=== PATIENT | male | born 1985 | race African-American/Black ===

== ENCOUNTER 2020-04-02 19:40 | Inpatient (IN) | payer OTHER ==
[~2020-04-02] VITALS: Ht 185.4 cm; Wt 95.3 kg
--- NOTE | 2020-04-02 19:43 | NUR ---
Pt in bathroom giving sample at this time.
[2020-04-02 19:47] VITALS: BP 172/127
[2020-04-02] MEDS ORDERED: PROAIR HFA8.5 GM INH (19:57)
[2020-04-02] MEDS ORDERED: SINGULAIR 10 MG10 M1 PO (19:58)
[2020-04-02 20:19] LABS: HCO3 13.2 mmol/L (22.0-26.0); PCO2 VENOUS 29.3 mmHg (41.0-51.0); PO2 VENOUS 36.1 mmHg (35.0-45.0)
[2020-04-02 20:20] LABS: URINE BILIRUBIN 1+ (Negative); URINE BLOOD 1+ (Negative); URINE CLARITY CLEAR; URINE COLOR YELLOW; URINE GLUCOSE-RANDOM* 3+ (Negative); URINE KETONES 3+ (Negative); URINE LEUKOCYTES-REFLEX NEGATIVE (Negative); URINE NITRITE-REFLEX NEGATIVE (Negative); URINE PROTEIN (DIPSTICK) TRACE (Negative); URINE SPECIFIC GRAVITY 1.025 (1.005-1.035); URINE UROBILINOGEN 0.2 E.U./dl (0.2-1.0)
[2020-04-02 20:21] LABS: HEMATOCRIT 43.3 % (42.0-52.0); MCH 32.2 pg (26.0-34.0); MCHC 34.7 g/dL (28.0-37.0); MCV 92.8 fL (80.0-100.0); PLATELET COUNT 195 thou/uL (150-400); RBC 4.67 mil/uL (4.50-6.00); RDW 14.3 % (10.5-14.5); WBC 5.5 thou/uL (4.0-11.0)
[2020-04-02 20:28] LABS: HYALINE CASTS 0-3 Few /LPF (None Seen); SQUAMOUS 4-10 Moderate /LPF (0-3)
[2020-04-02 20:29] LABS: BACTERIA-REFLEX 1-9 Few /HPF (None Seen); URINE RBC 0-2 Rare /HPF (0-2); URINE WBC-REFLEX 0-5 Rare /HPF (0-5)
[2020-04-02 20:30] LABS: CRYSTALS None Seen /LPF (None Seen)
[2020-04-02 20:33] LABS: CALCIUM 9.1 mg/dL (8.5-10.1); CREATININE 1.4 mg/dL (0.7-1.3); POTASSIUM 3.6 mmol/L (3.5-5.1)
[2020-04-02 20:39] LABS: ALBUMIN 4.3 g/dL (3.4-5.0); TOTAL BILIRUBIN 0.6 mg/dL (0.2-1.0); TOTAL PROTEIN 8.2 g/dL (6.4-8.2)
[2020-04-02 20:49] LABS: ABSOLUTE NEUTROPHILS 3.4 thou/uL (1.4-8.2)
[2020-04-02 20:50] LABS: ANISOCYTOSIS 1+; POLYCHROMASIA OCCASIONAL
[2020-04-02 21:15] LABS: ALBUMIN 4.3 g/dL (3.4-5.0); CALCIUM 9.1 mg/dL (8.5-10.1); CREATININE 1.3 mg/dL (0.7-1.3); MAGNESIUM 2.3 mg/dL (1.8-2.4); PHOSPHORUS 2.9 mg/dL (2.5-4.9); POTASSIUM 3.6 mmol/L (3.5-5.1)
[2020-04-02 22:04] VITALS: BP 138/92
--- NOTE | 2020-04-02 22:08 | NUR ---
FIRST ATTEMPT AT REPORT CALLED. NO ANSWER
--- NOTE | 2020-04-02 22:44 | NUR ---
second attempt at report made. nurse states she will call back in just a min
[2020-04-02 23:02] VITALS: BP 154/85
[2020-04-03] VITALS (11 sets, daily range): BP systolic 126–165; BP diastolic 58–93
[2020-04-03 01:38] LABS: ALBUMIN 3.6 g/dL (3.4-5.0); CALCIUM 8.7 mg/dL (8.5-10.1); CREATININE 1.2 mg/dL (0.7-1.3); PHOSPHORUS 2.1 mg/dL (2.5-4.9)
[2020-04-03 05:34] LABS: ALBUMIN 3.5 g/dL (3.4-5.0); CALCIUM 8.6 mg/dL (8.5-10.1); CREATININE 1.3 mg/dL (0.7-1.3); PHOSPHORUS 3.1 mg/dL (2.5-4.9)
--- NOTE | 2020-04-03 07:45 | EKG ---
[facility] [place] [address] ELECTROCARDIOGRAM REPORT Name: DARLING DA SILVA Room #: 247-P ADM IN M.R.#: [id number] Admission: 04/02/20 Attend Phys: Javier Rain MD Discharge: Date of : 89 Report #: [id number] THIS REPORT FOR: cc: Humza Lee James A. DO Lundgren, Craig H. 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
--- NOTE | 2020-04-03 08:13 | NUR ---
RECIEVED PT FROM ER. PT STATES HE FEELING BETTER AFTER IV FLUIDS. CONT ON DKA PROTOCOL. INSULIN GTT INFUSING TO KEEP BS 150-200. ANION GAP REMAINS AT 17. NO RESP DISTRESS, DENIES CP OR SOB AT THIS TIME. NPO, BUT PT READY TO EAT/DRINK. VOIDING -UO ADEQUATE. CONT PLAN OF CARE. PROGRESSING TOWARD GOALS
--- NOTE | 2020-04-03 09:55 | NUR ---
chart review. pt new to icu today. cm was able to visit with anjel via phone call. he a & o x 3, and able to make his needs know. education on dcp, safe net packet given to bedside nurse to give to cassie hobbs # [phone], [facility] [phone] if needs assistance with medication. anjel report " independent, live alone in apartment, 6 steps with hand rail up to apartment, no stairs inside. no needs in past. last time saw dr yanes was in october said ana luisa muhammad, had insurance and here i am now and no insurance. 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 do not drive, take uber for transportation"/anjel. will cont following as needed for dc needs. if he is unable to affords any new rx might have to vouch for 1 month no refills?
[2020-04-03 09:59] LABS: CREATININE 1.2 mg/dL (0.7-1.3); POTASSIUM 3.4 mmol/L (3.5-5.1)
[2020-04-03 10:00] LABS: MAGNESIUM 2.1 mg/dL (1.8-2.4)
--- NOTE | 2020-04-03 17:51 | NUR ---
PATIENT ON DKA PROTOCOL. Q1HR BLOOD SUGARS. 0900 LABS DRAWN - ANION GAP CLOSED AT 12. 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 ORDERS TO TITRATE OFF INSULIN GTT AND SWITCH TO SS INSULIN WITH LANTUS. IV FLUIDS DISCONTINUED. PATIENT DENIES ANY NAUSEA AND TOLERATING ADVANCED DIET. INTRODUCED PATIENT TO DIABETIC EDUCATION AND MANTAINACE. WILL NEED FURTHER EDUCATION ON INSULIN ADMINISTRATION AND GLUCSOE MONITORING WELL DIABETIC DIET.
[2020-04-04 00:06] LABS: GLYCOHEMOGLOBIN (HGB A1C) 12.7 % (4.8-5.6)
--- NOTE | 2020-04-04 02:35 | NUR ---
ASSUMED PT CARE AT 1915. PT IS UP AD TEENA. A&OX4. VSS. PT BLOOD SUGAR WAS 348 - RECIEVED 9 UNITS OF LISPRO. PT TOOK A SHOWER. PT IS RESTING IN HIS ROOM. WILL CONTINUE TO MONITOR.
[2020-04-04 03:06] LABS: GLYCOHEMOGLOBIN (HGB A1C) 12.8 % (4.8-5.6)
[2020-04-04 04:12] VITALS: BP 131/73
[2020-04-04 05:44] LABS: ABSOLUTE NEUTROPHILS 2.2 thou/uL (1.4-8.2); BASOPHILS 0.1 % (0.0-2.0); HEMATOCRIT 38.8 % (42.0-52.0); HEMOGLOBIN 13.3 gm/dL (14.0-18.0); MCH 31.4 pg (26.0-34.0); MCHC 34.3 g/dL (28.0-37.0); MCV 91.6 fL (80.0-100.0); MONOCYTES 11.6 % (1.0-8.0); PLATELET COUNT 168 thou/uL (150-400); POLYS 41.3 % (36.0-66.0); RBC 4.24 mil/uL (4.50-6.00); RDW 14.1 % (10.5-14.5); WBC 5.4 thou/uL (4.0-11.0)
[2020-04-04 06:12] LABS: ALBUMIN 3.2 g/dL (3.4-5.0); CALCIUM 9.1 mg/dL (8.5-10.1); CREATININE 1.1 mg/dL (0.7-1.3); TOTAL BILIRUBIN 0.5 mg/dL (0.2-1.0); TOTAL PROTEIN 6.2 g/dL (6.4-8.2)
[2020-04-04 06:15] LABS: POTASSIUM 2.6 mmol/L (3.5-5.1)
[2020-04-04 07:26] VITALS: BP 125/67
[2020-04-04 08:17] VITALS: BP 131/73
--- NOTE | 2020-04-04 11:00 | NUR ---
Received awake on bed. Due medications given as prescribed. A+Ox4. On room air. Vitals signs stable. On carb controlled diet- tolerating well; no nausea, no vomiting and no abdominal pain noted. On blood sugar monitoring- taken and recorded accordingly, with sliding scale insulin ordered- given as prescribed; pt newly diagnosed diabetic- health teaching given. Up ad janene, independent with ADLs. Continent of bowel and bladder- able to go to the toilet independently. With SL at L AC- intact and flushing well. Pt with low potassium this morning, PO replacement given as prescribed, for repeat K level at 12pm as ordered. To continue monitoring patient.
--- NOTE | 2020-04-04 13:38 | HC ---
[facility] [place] [address] CONSULTATION Name: DARLING DA SILVA Room #: 449-I ADM IN M.R.#: [id number] Admission: 04/02/20 Attend Phys: Javier Rain MD Discharge: Date of : 89 Report #: [id number] THIS REPORT FOR: cc: Humza Lee James A. DO Al-Mubaslat, Ahmad MD ~ CC: Humza Rain DATE OF SERVICE: 04/03/2020 ENDOCRINE CONSULTATION NOTE CONSULTING PHYSICIAN: Dr. Rain. REASON FOR CONSULTATION: DKA, type 2 diabetes mellitus. HISTORY OF PRESENT ILLNESS: This is a 34-year-old male patient whose medical background is rather unremarkable other than for intermittent issues with mild asthma. The patient presented to the ER yesterday with progressive difficulties pertaining to generalized weakness, fatigue, polyuria, excessive thirst as well as blurry vision for about 2 weeks. On arrival, the patient was evaluated and was found to have evidence of diabetic ketoacidosis and was admitted to the ICU for further care and monitoring. He was treated overnight and earlier this morning with IV insulin and IV fluid resuscitation as per the [facility] protocol and has done progressively better. He feels well this morning. The patient does not have any prior history of diabetes mellitus and does not recall having much of a change in his baseline prior to this 2-week period that is described above. The patient does not have a family history of diabetes mellitus. He does not recall having received new medications or having been acutely ill in the past few weeks. REVIEW OF SYSTEMS: CONSTITUTIONAL: Fatigue, weakness, slight weight loss. No fever or chills. HEENT: Negative for sore throat, sinus pain, ear drainage. PULMONARY: Negative for shortness of breath, cough or hemoptysis. CARDIAC: Negative for chest pain, palpitations, syncope or presyncope. GASTROINTESTINAL: Noted for abdominal discomfort, nausea or vomiting. NEUROLOGY: Negative for loss of consciousness, headaches or seizure activity. DERMATOLOGIC: Negative for skin rash, ulceration or skin discoloration. Otherwise, his review of systems is noncontributory other than those mentioned in HPI. PAST MEDICAL HISTORY: Asthma. [address] [address] CONSULTATION Name: DARLING DA SILVA Room #: 449-I [facility] IN [facility].#: [id number] Admission: 04/02/20 Attend Phys: Javier Rain MD Discharge: Date of : 89 Report #: [id number] OUTPATIENT MEDICATIONS: Singulair 10 mg daily, albuterol as needed. ALLERGIES: No known drug allergies. FAMILY HISTORY: Noncontributory. 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 Denies use of illicit drugs. Drinks alcohol only occasionally. He is an everyday smoker. He is single, does not have children. PHYSICAL EXAMINATION: GENERAL: Pleasant young -Romanian male patient who is not in apparent pain or distress. VITAL SIGNS: Blood pressure is 155/68 mmHg, heart rate is 53 beats per minute, respirations 16 per minute, temperature 36.3 degrees Celsius. CONSTITUTIONAL: The patient is lying supine in bed, appears comfortable, not in apparent distress. HEENT: Anicteric sclerae. Intact extraocular motions. NECK: Supple, without JVD, carotid bruits or lymphadenopathy. I do not appreciate thyromegaly. CHEST: Noted for good air entry bilaterally with scattered rales. No wheezes or crackles. HEART: Regular rate and rhythm without murmurs or gallops. ABDOMEN: Soft, lax. No guarding. Active bowel sounds. EXTREMITIES: Lower extremity exam is negative for ankle edema. No skin breaks or ulcerations. NEUROLOGIC: Awake, alert and oriented to time, place and person. The remainder of his examination is nonfocal. PSYCHIATRIC: Pleasant, interactive. Normal mood and affect. LABORATORY DATA: On presentation, the patient had a blood glucose of 493. This has gotten progressively lower to where it was sustained under 180 mg/dL since midnight, most recently at 98 mg/dL prior to this dictation. Sodium 143, potassium 3.4, chloride 107, CO2 of 24; anion gap 12, it was 24 on presentation; BUN 4, creatinine 1.2, glucose 164, AST 5, total bilirubin 0.6, calcium 9.0, phosphorus 3.1, magnesium 2.1, alkaline phosphatase 117, ALT 25, total protein 8.2, albumin 3.5, EGFR 85. Troponin is negative. White blood count 5.5, hemoglobin 15, hematocrit 43.3, platelets 195. Hemoglobin A1c is pending. GAD65 antibodies are pending. ASSESSMENT AND PLAN: 1. Diabetic ketoacidosis. The patient presented in a manner that is consistent with diabetic ketoacidosis. He has been managed appropriately with intravenous insulin therapy and intravenous fluid support as per the [facility] intravenous insulin protocol. He has done well and ____ metabolic changes referenced above. At this point, I will transition the patient off of [facility] [address] [facility] [place] [address] CONSULTATION Name: DARLING DA SILVA Room #: 449-I ADM IN [facility]#: [id number] Admission: 04/02/20 Attend Phys: Javier Rain MD Discharge: Date of : 89 Report #: [id number] IV insulin. 2. Type 2 diabetes mellitus. This constitutes a new diagnosis of diabetes mellitus. While it is not yet fully clear whether this is type 1 versus type 2 diabetes mellitus, the patient's clinical outlook is more suggestive of type 2 being the culprit. The patient was counseled extensively about the pathogenesis of diabetes mellitus, its implications, as well as the need to achieve and maintain adequate glycemic control in the future to avoid diabetic complications. We discussed the issues ranging from medicinal therapy, diet changes, exercise requirements, blood glucose requirements, as well as periodic outpatient followup. The patient verbalizes understanding of these different variables and at some point was emotional about the news of this new diagnosis. The patient will be counseled by our dietitian regarding diet changes. His most recent insulin requirement was at 3 units an hour. I will transition the patient to a combination of Lantus insulin 26 units daily as well as a Humalog supplemental scale of low intensity. IV insulin therapy will be discontinued 2-3 hours following the Lantus injection. I will send GAD65 titer level to help future management plans for the patient. 3. Hypertension. The patient is hypertensive during his hospital stay. Whether this is his baseline or is being confounded by his acute presentation and anxiety is unclear. I will request a urine microalbumin to better assess his need for an active antihypertensive therapy. 4. Hyperlipidemia. Given the new diagnosis of diabetes mellitus, the patient could certainly benefit from adequate lipid control. I will check a lipid panel to inquire into this aspect of care. I certainly appreciate this consultation by Dr. Rain. <ELECTRONICALLY SIGNED> By: Kathy York MD 04/04/20 1338 [id number] Kathy York MD /nt
[2020-04-04 15:40] VITALS: BP 135/81
--- NOTE | 2020-04-04 16:23 | NUR ---
CARE TEAM INDICATED THAT PT MAY BE MEDICALLY STABLE TO DC HOME OVER THE WEEKEND. PT IS NEW DIABETIC. NEEDED MEDS AND TESTING SUPPLIES VOUCHERED BY CM. CM REQUESTED AND RECEIVED PERMISSION TO VOUCHER ABOUT $727.80 WORTH OF MEDS AND SUPPLIES FOR PT TO DC HOME WITH. THEY WERE FILLED AND ARE IN THE NURSES CART TO BE GIVEN TO PT UPON DC. PT HAS [facility] INFO. NO OTHER CM INTERVENTION INDICATED. CASE CLOSED.
[2020-04-04 19:20] VITALS: BP 129/61
--- NOTE | 2020-04-05 04:14 | NUR ---
PATIENT ALERT AND ORIENTED X4. UP ADLIB IN ROOM. DENIES PAIN. BS MONITORED PER ORDER. RESTING QUIETLY AT TIME OF NOTE. WILL MONITOR.
[2020-04-05 07:14] VITALS: BP 143/98
[2020-04-05 11:22] LABS: HEMATOCRIT 41.2 % (42.0-52.0); MCH 31.6 pg (26.0-34.0); MCHC 33.9 g/dL (28.0-37.0); MCV 93.2 fL (80.0-100.0); RBC 4.42 mil/uL (4.50-6.00); RDW 14.7 % (10.5-14.5)
[2020-04-05 11:34] LABS: MAGNESIUM 2.1 mg/dL (1.8-2.4); POTASSIUM 3.1 mmol/L (3.5-5.1)
--- NOTE | 2020-04-05 14:23 | NUR ---
Received awake on bed. Due medications given as prescribed, able to swallow meds w/o difficulty. On room air. Vital signs stable. On carb controlled diet- tolerating well; no nausea, no vomiting and no abdominal pain noted. On MS, not on telemetry. A+Ox4. Continent of bowel and bladder, able to go to the toilet independently. With SL at L AC- intact and flushing well. Up ad janene. On blood sugar monitoring- taken and recorded accordingly; with sliding scale and scheduled insulin ordered- given as prescribed. Dr Rain informed that pt's blood sugar still high; pt seen and examined by physician. Health teaching done re: insulin administration as well as signs and symptoms of low blood sugar, To continue monitoring patient. Pt complained that he has not had a bowel movement for more than 3 days- Dr Rain informed.
[2020-04-05 15:50] VITALS: BP 124/74
[2020-04-05 20:41] VITALS: BP 131/84
--- NOTE | 2020-04-06 07:22 | NUR ---
PATIENT ALERT AND ORIENTED X4. UP ADLIB IN ROOM. DENIES PAIN. REVIEW OF DIET AND INSULIN. POSSIBLE D/C TODAY. WILL MONITOR.
[2020-04-06 07:40] VITALS: BP 131/92
[2020-04-06 10:50] LABS: CALCIUM 9.3 mg/dL (8.5-10.1); CREATININE 0.7 mg/dL (0.7-1.3); MAGNESIUM 1.9 mg/dL (1.8-2.4); POTASSIUM 3.3 mmol/L (3.5-5.1)
[2020-04-06] MEDS ORDERED: LANTUS100 UNIT/M SUBQ (12:14)
[2020-04-06] MEDS ORDERED: NOVOLOG100 UNIT/1 SUBQ (12:14)
[2020-04-06 14:03] VITALS: BP 131/73
--- NOTE | 2020-04-06 14:46 | NUR ---
Assumed pt care at 7am.Pt in bed very excited about dc home today if blood sugar wnl.Assessment completed.vss.Meds given as ordered with meals. Pt has good appetite.Dr Rain here,order noted.Pt will dc home between 4&5pm today if sugar level improved and if not will stay till am.No further c/o.Will continue to monitor.
== END 2020-04-06 19:00 | disposition home or self-care (01) | DRG 638 ==
LOC: ER 19:40 → EROBS 21:17 → ICU 21:17 → 4W 04-03 18:39
PROVIDERS: Emergency Medicine; Internal Medicine; Nurse Practitioner Family; ADMIT Internal Medicine; ATTEND Internal Medicine
DX: E11.10 Type 2 diabetes mellitus with ketoacidosis without coma (principal); N17.9 Acute kidney failure, unspecified; I10 Essential (primary) hypertension; E78.5 Hyperlipidemia, unspecified; J45.909 Unspecified asthma, uncomplicated; F17.210 Nicotine dependence, cigarettes, uncomplicated; E11.42 Type 2 diabetes mellitus with diabetic polyneuropathy; E87.6 Hypokalemia; K59.00 Constipation, unspecified; E86.0 Dehydration; Z72.89 Other problems related to lifestyle; Z79.899 Other long term (current) drug therapy
CPT/HCPCS: 10040; 10078

== ENCOUNTER → 2020-08-11 | Emergency (ER) | payer OTHER ==
[~2020-08-11] MED LIST: LANTUS100 UNIT/M SUBQ; NOVOLOG100 UNIT/1 SUBQ; PROAIR HFA8.5 GM INH; SINGULAIR 10 MG10 M1 PO
[2020-08-11 11:08] VITALS: BP 139/93
== END ==
LOC: ER 10:53
DX: R41.82 Altered mental status, unspecified (principal); Z53.21 Procedure and treatment not carried out due to patient leaving prior to being seen by health care provider

== ENCOUNTER 2021-08-25 14:15 | Emergency (ER) | payer OTHER ==
[~2021-08-25] VITALS: Ht 188 cm; Wt 95.3 kg
[2021-08-25] MEDS ORDERED: ALBUTEROL2.5 MG/31 INH (15:51)
[2021-08-25 16:30] VITALS: BP 133/83
== END 2021-08-25 16:30 | disposition home or self-care (01) ==
LOC: ER 14:15
DX: U07.1 COVID-19 (principal); F17.210 Nicotine dependence, cigarettes, uncomplicated; E11.9 Type 2 diabetes mellitus without complications; J45.909 Unspecified asthma, uncomplicated